=== PATIENT | female | born 1945 | race Caucasian/White ===

== ENCOUNTER 2019-08-27 16:28 | Emergency (ER) | payer MEDICARE, BC ==
[~2019-08-27] VITALS: Ht 160 cm; Wt 65.9 kg
[~2019-08-27 16:28] MED LIST: CO Q-10100 MG PO; MULTIPLE VITAMI1 TA1 PO; NEURONTIN 300300 MG PO; OS-CAL500 MG PO; PEPCID20 MG PO; TUMMERIC PO; VITAMIN B COMPL1 TAB PO; VITAMIN D31000 UNI2 PO
[2019-08-27 16:30] VITALS: Ht 160 cm; Wt 65.9 kg
[2019-08-27 17:00] LABS: WBC 21.1 10x3/uL (4.8-10.8)
[2019-08-27 17:12] LABS: CALC OSMOLALITY 275 mosm/kg (275-300); CALCIUM 7.6 mg/dL (8.5-10.1); CARBON DIOXIDE 24.4 mmol/L (21.0-32.0); CHLORIDE - SERUM 102 mmol/L (98-107); CREATININE - SERUM 0.6 mg/dL (0.6-1.3); GLUCOSE 165 mg/dL (74-106); SODIUM 133 mmol/L (136-145); UREA NITROGEN 28 mg/dL (7-18); eGFR NON AFRICAN AMERICAN > 90 mL/min (90-120)
[2019-08-27 17:15] LABS: ALBUMIN 2.7 g/dL (3.4-5.0); ALKALINE PHOSPHATASE 54 U/L (30-120); ALT (SGPT) 15 U/L (10-68); BILIRUBIN - TOTAL 0.15 mg/dL (0.2-1.3); PROTEIN - SERUM 5.5 g/dL (6.4-8.2)
[2019-08-27 17:20] LABS: RBC 2.36 10x6/uL (4.00-5.40)
[2019-08-27 17:26] LABS: APTT 22.3 SECONDS (22.8-39.4); HEMATOCRIT 22.2 % (36.0-48.0); HEMOGLOBIN 7.1 g/dL (12-16); INR 1.15 (0.85-1.17); MCH 30.1 pg (26.0-34.0); MCV 94.1 fL (80.0-100.0); MEAN PLATELET VOLUME 10.8 fL (7.4-10.4); PLATELET COUNT 239 10x3/uL (130-400); PROTIME 14.6 SECONDS (11.6-15.0); RDW 13.8 % (11.5-14.5)
[2019-08-27 17:28] LABS: EOSINOPHILS 1 % (0-7); LYMPHOCYTES 12 % (15-50); MONOCYTES 1 % (2-11); NEUTROPHILS 85 % (40-80); PLATELET ESTIMATE NORMAL
[2019-08-27 17:34] VITALS: BP 171/70
[2019-08-27 18:33] VITALS: BP 142/76
--- NOTE | 2019-08-27 18:40 | NUR ---
CALLED LAB STATED BLOOD NOT READY AT THIS TIME.
--- NOTE | 2019-08-27 18:47 | NUR ---
CALLED ICU TO GIVE REPORT, RN REFUSED TO TAKE REPORT STATED NO GI COVERAGE ALL WEEKEND, DR. BUENO NOTIFIED.
--- NOTE | 2019-08-27 19:18 | NUR ---
REPORT TO IMAN STRAUSS
--- NOTE | 2019-08-27 19:42 | NUR ---
1 UNIT [facility] INFUSING. PATIENT TO TRANSFER TO THE MEDICAL CENTER. REPORT CALLED TO ALDO VALERIO
[2019-08-27 20:10] VITALS: BP 147/83
[2019-08-27 20:25] VITALS: BP 148/76
--- NOTE | 2019-08-27 20:29 | NUR ---
[facility] HERE TO TRANSFER PATIENT . BLOOD CONTINUES TO INFUSE L AC [address]. PROTONIX DRIP TO R AC. PATIENT TRANSFERED TO [facility]. NOTIFIED BY PATIENT OF TRANSFER
--- NOTE | 2019-08-27 20:31 | NUR ---
CALLED AND NOTIFIED PATIENT IS LEAVING NOW BY AMBULANCE TO [facility]
[2019-08-27 20:35] VITALS: BP 148/76
== END 2019-08-27 20:25 | disposition other institution (70) ==
LOC: D.ER 16:28 → D.ICU 17:11 → D.ER 17:11
PROVIDERS: Emergency Medicine
DX: R55 Syncope and collapse (principal); R19.7 Diarrhea, unspecified